=== PATIENT | male | born 1945 | race African-American/Black ===

== ENCOUNTER 2019-06-30 08:57 | Inpatient (IN) ==
[2019-06-30] MEDS ORDERED: SODIUM CHLORIDE 0.9% 2,000 ML IV STA (09:52)
[2019-06-30 10:06] LABS: Basophils % 0.2 % (0.0-0.8); Hematocrit 33.9 VOL% (42.0-52.0); Hemoglobin 11.2 GM/DL (14.0-18.0); Immature Granulocytes % 3.1 %; Immature Granulocytes Absolute 0.16 #; Lymphocytes # 0.2 10*3/uL (1.4-4.0); Lymphocytes % 4.1 % (21.2-54.2); Mean Corpuscular Volume 85.8 FL (87-102); Mean Platelet Volume 11.6 FL (9.6-12.0); Monocytes % 1.2 % (1.7-12.7); Neutrophils % 91.4 % (38.7-73.9); Red Blood Count 3.95 MC/CUMM (3.8-5.5); Red Cell Distribution Width 14.6 % (9.3-17.3); White Blood Count 5.1 T/CUMM (4-12)
[2019-06-30 10:12] LABS: Platelet Count 52 T/CUMM (130-400)
[2019-06-30 10:26] LABS: Band Neutrophils 1 % (0-10); Hypochromasia 1+; Lymphocytes 4 % (20-55); Microcytosis Slight; Segmented Neutrophils 94 % (50-85); Total Cells Counted 100
[2019-06-30 10:27] LABS: Platelet Estimate Decreased
[2019-06-30 10:28] LABS: Burr Cells Slight
[2019-06-30 10:31] LABS: Albumin 1.8 G/DL (3.4-5.0); Bilirubin,Total 1.4 MG/DL (0.2-1.0); Calcium 6.9 MG/DL (8.5-10.1); Osmolality,Calculated 281.5 MOS/KG (273-304); Thyroid Stimulating Hormone 0.328 uIU/ml (0.358-3.74); Total Protein 6.1 G/DL (6.4-8.3)
[2019-06-30 11:26] LABS: Free T4 (Free Thyroxine) 1.15 NG/DL (0.76-1.46)
[2019-06-30] MEDS ORDERED: ONDANSETRON 4 MG/2 ML VIAL IV PRN (11:47)
[2019-06-30] MEDS ORDERED: DEXTROSE 50% 25 GM/50 ML VIAL IV PRN ×2 (11:47)
[2019-06-30] MEDS ORDERED: GLUCAGON 1 MG VIAL IM PRN ×2 (11:47)
[2019-06-30] MEDS ORDERED: ACETAMINOPHEN 325 MG TABLET PO PRN (11:47)
[2019-06-30] MEDS: SODIUM CHLORIDE 0.9% 1,000 ML IV SCH ×2 (14:50→21:28)
[2019-06-30] MEDS: ENOXAPARIN 40 MG/0.4 ML SYRINGE SUBCUT SCH (14:50)
[2019-06-30] MEDS ORDERED: METOPROLOL TARTRATE 5 MG/5 ML VIAL IV ONE (15:23)
[2019-07-01] MEDS: MORPHINE 4 MG/1 ML VIAL IV PRN ×2 (00:16→10:15)
[2019-07-01 05:48] LABS: Hematocrit 32.1 VOL% (42.0-52.0); Hemoglobin 10.6 GM/DL (14.0-18.0); Immature Granulocytes % 6.7 %; Immature Granulocytes Absolute 0.07 #; Lymphocytes # 0.3 10*3/uL (1.4-4.0); Lymphocytes % 27.9 % (21.2-54.2); Mean Corpuscular Volume 85.8 FL (87-102); Monocytes % 6.7 % (1.7-12.7); Neutrophils % 58.7 % (38.7-73.9); Red Blood Count 3.74 MC/CUMM (3.8-5.5); Red Cell Distribution Width 14.7 % (9.3-17.3)
[2019-07-01 06:11] LABS: Platelet Count 26 T/CUMM (130-400)
[2019-07-01 06:12] LABS: Albumin 1.4 G/DL (3.4-5.0); Bilirubin,Total 1.6 MG/DL (0.2-1.0); Calcium 7.1 MG/DL (8.5-10.1); Osmolality,Calculated 295.5 MOS/KG (273-304)
[2019-07-01 06:17] LABS: Band Neutrophils 2 % (0-10); Hypochromasia 1+; Lymphocytes 25 % (20-55); Segmented Neutrophils 69 % (50-85); Total Cells Counted 100
[2019-07-01 06:18] LABS: Acanthocytes Few; Burr Cells Slight; Microcytosis Slight; Ovalocytes Slight; Target Cells Slight
[2019-07-01 06:19] LABS: Platelet Estimate Decreased
[2019-07-01 09:09] LABS: Hematocrit 32.7 VOL% (42.0-52.0); Hemoglobin 10.8 GM/DL (14.0-18.0); Immature Granulocytes % 1.7 %; Immature Granulocytes Absolute 0.02 #; Lymphocytes # 0.3 10*3/uL (1.4-4.0); Lymphocytes % 23.7 % (21.2-54.2); Mean Corpuscular Volume 85.4 FL (87-102); Monocytes % 8.5 % (1.7-12.7); Neutrophils % 66.1 % (38.7-73.9); Red Blood Count 3.83 MC/CUMM (3.8-5.5); Red Cell Distribution Width 14.6 % (9.3-17.3); White Blood Count 1.2 T/CUMM (4-12)
[2019-07-01 09:18] LABS: Platelet Count 26 T/CUMM (130-400)
[2019-07-01 09:41] LABS: Burr Cells Slight; Hypochromasia 1+; Lymphocytes 23 % (20-55); Microcytosis Slight; Ovalocytes Slight; Segmented Neutrophils 69 % (50-85); Total Cells Counted 100
[2019-07-01 09:42] LABS: Platelet Estimate Decreased; Target Cells Slight
[2019-07-01] MEDS: PANTOPRAZOLE 40 MG TABLET PO SCH (10:15)
[2019-07-01] MEDS: SODIUM CHLORIDE 0.9% 1,000 ML IV SCH ×2 (10:20→16:40)
[2019-07-01] MEDS ORDERED: POTASSIUM CHLORIDE 20 MEQ TABLET PO ONE (12:02)
[2019-07-01] MEDS: METOPROLOL TARTRATE 25 MG TABLET PO SCH ×2 (12:26→20:49)
[2019-07-01] MEDS: ENOXAPARIN 40 MG/0.4 ML SYRINGE SUBCUT SCH (12:33)
[2019-07-01] MEDS ORDERED: CEFEPIME 1,000 MG VIAL IM SCH (15:00)
[2019-07-01] MEDS ORDERED: CEFEPIME 1,000 MG VIAL IV SCH (15:30)
[2019-07-01] MEDS ORDERED: CEFEPIME 1,000 MG in SODIUM CHLORIDE 0.9% 100 ML IV SCH (16:00)
[2019-07-01] MEDS: FILGRASTIM-SNDZ 480 MCG/0.8 ML SYRINGE SUBCUT SCH (16:37)
[2019-07-01] MEDS: CEFEPIME 1,000 MG in SODIUM CHLORIDE 0.9% 100 ML IV SCH (16:40)
[2019-07-01] MEDS ORDERED: DIGOXIN 0.5 MG/2 ML AMP IV ONE (18:43)
[2019-07-01] MEDS ORDERED: DIGOXIN 0.5 MG/2 ML AMP ONE (18:44)
[2019-07-01] MEDS ORDERED: SODIUM CHLORIDE 0.9% 500 ML IV ONE (18:49)
[2019-07-01 19:29] LABS: Eosinophils # 0.1 10*3/uL (0.0-0.87); Hematocrit 29.2 VOL% (42.0-52.0); Hemoglobin 9.6 GM/DL (14.0-18.0); Immature Granulocytes % 2.5 %; Immature Granulocytes Absolute 0.01 #; Lymphocytes # 0.2 10*3/uL (1.4-4.0); Mean Corpuscular HGB Conc 32.9 GM/DL (32-36); Mean Corpuscular Volume 85.4 FL (87-102); Neutrophils % 17.5 % (38.7-73.9); Red Blood Count 3.42 MC/CUMM (3.8-5.5); Red Cell Distribution Width 14.6 % (9.3-17.3)
[2019-07-01 19:38] LABS: Platelet Count 18 T/CUMM (130-400); White Blood Count 0.4 T/CUMM (4-12)
[2019-07-01 20:00] LABS: Band Neutrophils 4 % (0-10); Burr Cells 3+; Lymphocytes 22 % (20-55); Metamyelocytes 4 %; Platelet Estimate Decreased; Segmented Neutrophils 59 % (50-85); Total Cells Counted 100
[2019-07-02] MEDS: CEFEPIME 1,000 MG in SODIUM CHLORIDE 0.9% 100 ML IV SCH ×4 (00:02→23:58)
[2019-07-02] MEDS ORDERED: SODIUM CHLORIDE 0.9% 500 ML IV ONE ×2 (00:15→06:25)
[2019-07-02] MEDS: SODIUM CHLORIDE 0.9% 1,000 ML IV SCH (01:03)
[2019-07-02] MEDS ORDERED: VANCOMYCIN INJ 1,000 MG in SODIUM CHLORIDE 0.9% 250 ML IV SCH (01:30)
[2019-07-02] MEDS: PHENYLEPHRINE DRIP 40 MG/250 ML PREMIX IV PRN ×8 (02:53→20:42)
[2019-07-02 04:03] LABS: Calcium 6.8 MG/DL (8.5-10.1)
[2019-07-02 04:13] LABS: Allen Test Positive
[2019-07-02 04:17] LABS: ABG Base Excess -14.4 MMOL/L (-2.5-2.5); ABG HCO3 12.7 MMOL/L (20-26); ABG PH 7.359 (7.35-7.45); ABG TCO2 9.4 MMOL/L (23-27)
[2019-07-02 04:20] LABS: ABG PCO2 17.6 MM HG (35-48)
[2019-07-02 05:17] LABS: ABG Base Excess -21.9 MMOL/L (-2.5-2.5); ABG HCO3 8.5 MMOL/L (20-26); ABG Oxygen Saturation 97.4 % (95-100); ABG TCO2 3.9 MMOL/L (23-27)
[2019-07-02 05:19] LABS: ABG PCO2 8.4 MM HG (35-48)
[2019-07-02] MEDS ORDERED: SODIUM BICARBONATE 50 MEQ/50 ML VIAL IV ONE (05:50)
[2019-07-02] MEDS: SODIUM BICARB INJ 150 MEQ in STERILE WATER INJ 850 ML IV SCH ×3 (06:13→23:53)
[2019-07-02] MEDS ORDERED: NOREPINEPHRINE 4 MG/4 ML VIAL IV ONE (06:21)
[2019-07-02] MEDS: NOREPINEPHRINE 8 MG in SODIUM CHLORIDE 0.9% 242 ML IV PRN ×5 (06:29→20:39)
[2019-07-02] MEDS: MORPHINE 4 MG/1 ML VIAL IV PRN ×2 (07:56→15:26)
[2019-07-02] MEDS: METOPROLOL TARTRATE 25 MG TABLET PO SCH (08:20)
[2019-07-02] MEDS: PANTOPRAZOLE 40 MG TABLET PO SCH (08:20)
[2019-07-02 08:41] LABS: Apearance,Urine Slightly Hazy (Clear); Bacteria,Urine Occasional /HPF (Few); Bilirubin,Urine Negative (Negative); Blood, Urine Large mg/dL (Negative); Glucose,Urine (UA) Negative (Negative); Ketones,Urine Negative (Negative); Mucus,Urine Occasional /LPF (Occasional); Nitrite,Urine Negative (Negative); Protein,Urine Negative; RBC,Urine 71 /HPF (0-4); Sperm,Urine Occasional /HPF (Negative); Squamous Epithelial Cell,Urine Occasional /HPF (0-10); Urine Color Yellow (Yellow); Urine Specific Gravity 1.006 (1.001-1.035); Urine Urobilinogen < 2.0 EU/DL (0.2-1.0); WBC,Urine 4 /HPF (0-6)
[2019-07-02 09:15] LABS: Hematocrit 27.2 VOL% (42.0-52.0); Hemoglobin 9.1 GM/DL (14.0-18.0); Immature Granulocytes % 2.3 %; Immature Granulocytes Absolute 0.01 #; Lymphocytes # 0.3 10*3/uL (1.4-4.0); Lymphocytes % 74.4 % (21.2-54.2); Mean Corpuscular HGB Conc 33.5 GM/DL (32-36); Monocytes % 9.3 % (1.7-12.7); Red Blood Count 3.24 MC/CUMM (3.8-5.5); Red Cell Distribution Width 14.6 % (9.3-17.3)
[2019-07-02 09:19] LABS: White Blood Count 0.4 T/CUMM (4-12)
[2019-07-02 09:20] LABS: Platelet Count 12 T/CUMM (130-400)
[2019-07-02 09:34] LABS: Acanthocytes Few; Hypochromasia 1+; Lymphocytes 100 % (20-55); Ovalocytes Slight; Platelet Estimate Decreased; Total Cells Counted 100
[2019-07-02] MEDS ORDERED: SODIUM CHLORIDE 0.9% 1,000 ML IV PRN (10:15)
[2019-07-02 10:25] LABS: ABG Base Excess -11.7 MMOL/L (-2.5-2.5); ABG HCO3 9.8 MMOL/L (20-26); ABG Oxygen Saturation 93.6 % (95-100); ABG PH 7.468 (7.35-7.45); ABG PO2 75.1 MM HG (80-95); ABG TCO2 10.2 MMOL/L (23-27)
[2019-07-02 10:27] LABS: ABG PCO2 13.8 MM HG (35-48)
[2019-07-02] MEDS: FILGRASTIM-SNDZ 480 MCG/0.8 ML SYRINGE SUBCUT SCH (11:07)
[2019-07-02] MEDS: HYDROCORTISONE 100 MG VIAL IV SCH ×2 (13:49→21:47)
[2019-07-02 15:21] LABS: Hematocrit 25.2 VOL% (42.0-52.0); Hemoglobin 8.4 GM/DL (14.0-18.0); Immature Granulocytes % 3.1 %; Immature Granulocytes Absolute 0.01 #; Lymphocytes # 0.3 10*3/uL (1.4-4.0); Lymphocytes % 84.4 % (21.2-54.2); Mean Corpuscular HGB Conc 33.3 GM/DL (32-36); Mean Platelet Volume 11.2 FL (9.6-12.0); Monocytes % 3.1 % (1.7-12.7); Neutrophils % 9.4 % (38.7-73.9); Platelet Count 59 T/CUMM (130-400); Red Cell Distribution Width 14.6 % (9.3-17.3)
[2019-07-02] MEDS ORDERED: LIDOCAINE 2% TOP JELLY 20 ML VIAL INTRAURETH ONE ×2 (15:21→15:33)
[2019-07-02 15:23] LABS: White Blood Count 0.3 T/CUMM (4-12)
[2019-07-02 16:14] LABS: Lymphocytes 90 % (20-55); Nucleated Red Blood Cells 2 (0-5); Segmented Neutrophils 3 % (50-85)
[2019-07-02 16:15] LABS: Hypochromasia 1+; Microcytosis 1+; Platelet Estimate Decreased; Total Cells Counted 100
[2019-07-02 16:16] LABS: Burr Cells Few; Target Cells Few
[2019-07-03] MEDS: NOREPINEPHRINE 8 MG in SODIUM CHLORIDE 0.9% 242 ML IV PRN ×3 (00:47→06:39)
[2019-07-03] MEDS: PHENYLEPHRINE DRIP 40 MG/250 ML PREMIX IV PRN ×9 (00:48→21:59)
[2019-07-03 02:00] LABS: Hematocrit 25.8 VOL% (42.0-52.0); Hemoglobin 8.7 GM/DL (14.0-18.0); Immature Granulocytes % 6.9 %; Immature Granulocytes Absolute 0.02 #; Lymphocytes # 0.2 10*3/uL (1.4-4.0); Lymphocytes % 58.6 % (21.2-54.2); Mean Corpuscular HGB Conc 33.7 GM/DL (32-36); Monocytes % 10.3 % (1.7-12.7); Neutrophils % 24.2 % (38.7-73.9); Red Blood Count 3.11 MC/CUMM (3.8-5.5); Red Cell Distribution Width 14.7 % (9.3-17.3)
[2019-07-03 02:06] LABS: Platelet Count 17 T/CUMM (130-400); White Blood Count 0.3 T/CUMM (4-12)
[2019-07-03 02:23] LABS: Allen Test Positive
[2019-07-03 02:25] LABS: ABG Base Excess -0.1 MMOL/L (-2.5-2.5); ABG HCO3 24.4 MMOL/L (20-26); ABG Oxygen Saturation 97.8 % (95-100); ABG PCO2 22.6 MM HG (35-48); ABG PH 7.576 (7.35-7.45); ABG PO2 93.9 MM HG (80-95); ABG TCO2 19.3 MMOL/L (23-27)
[2019-07-03 02:35] LABS: Calcium 6.6 MG/DL (8.5-10.1); Osmolality,Calculated 326.4 MOS/KG (273-304)
[2019-07-03 03:18] LABS: Lymphocytes 78 % (20-55); Total Cells Counted 100
[2019-07-03 03:21] LABS: Burr Cells 2+; Hypochromasia 1+; Microcytosis 1+; Platelet Estimate Decreased; Target Cells Few
[2019-07-03 03:22] LABS: Segmented Neutrophils 6 % (50-85)
[2019-07-03] MEDS: HYDROCORTISONE 100 MG VIAL IV SCH ×3 (05:13→20:40)
[2019-07-03] MEDS: SODIUM BICARB INJ 150 MEQ in STERILE WATER INJ 850 ML IV SCH (07:02)
[2019-07-03] MEDS ORDERED: ACETAMINOPHEN 650 MG SUPP RECTAL PRN (07:33)
[2019-07-03] MEDS: CEFEPIME 1,000 MG in SODIUM CHLORIDE 0.9% 100 ML IV SCH (07:58)
[2019-07-03] MEDS ORDERED: SODIUM CHLORIDE 0.45% 1,000 ML IV SCH (08:00)
[2019-07-03] MEDS ORDERED: VANCOMYCIN INJ 1,000 MG in SODIUM CHLORIDE 0.9% 250 ML IV ONE (08:00)
[2019-07-03] MEDS: FILGRASTIM-SNDZ 480 MCG/0.8 ML SYRINGE SUBCUT SCH (08:51)
[2019-07-03] MEDS: PANTOPRAZOLE 40 MG TABLET PO SCH (08:58)
[2019-07-03] MEDS ORDERED: SODIUM CHLORIDE 0.9% 1,000 ML IV PRN (09:40)
[2019-07-03] MEDS ORDERED: AMIODARONE INJ 450 MG in DEXTROSE 5% 241 ML IV SCH (10:30)
[2019-07-03] MEDS ORDERED: AMIODARONE INJ 150 MG in DEXTROSE 5% 100 ML IV ONE (10:30)
[2019-07-03] MEDS ORDERED: ETOMIDATE 20 MG/10 ML VIAL IV ONE ×2 (11:16→11:30)
[2019-07-03] MEDS ORDERED: SUCCINYLCHOLINE 200 MG/10 ML VIAL ONE (11:17)
[2019-07-03] MEDS: NOREPINEPHRINE 8 MG in DEXTROSE 5% 242 ML IV PRN ×2 (11:25→15:36)
[2019-07-03] MEDS ORDERED: SUCCINYLCHOLINE 200 MG/10 ML VIAL IV ONE (11:30)
[2019-07-03] MEDS ORDERED: DEXTROSE 10% 250 ML IV ONE (12:48)
[2019-07-03] MEDS: DEXTROSE 10% 250 ML BAG IV PRN ×3 (12:49→14:51)
[2019-07-03 12:59] LABS: ABG HCO3 12.8 MMOL/L (20-26); ABG Oxygen Saturation 98.9 % (95-100); ABG PCO2 35.8 MM HG (35-48); ABG TCO2 12.2 MMOL/L (23-27); Pt O2 Delivery Device Ventilator
[2019-07-03 13:05] LABS: ABG PH 7.161 (7.35-7.45)
[2019-07-03 13:13] LABS: Calcium 6.5 MG/DL (8.5-10.1)
[2019-07-03] MEDS: SODIUM BICARB INJ 100 MEQ in DEXTROSE 5% 1,000 ML IV SCH ×2 (13:22→20:34)
[2019-07-03] MEDS: POTASSIUM CHLORIDE RIDER 10 MEQ in PREMIX 1 EACH IV SCH ×3 (13:50→15:52)
[2019-07-03] MEDS ORDERED: DEXTROSE 10% 1,000 ML IV SCH (15:00)
[2019-07-03] MEDS ORDERED: SODIUM CHLORIDE 0.9% 1,000 ML IV ONE (17:23)
[2019-07-03] MEDS ORDERED: NOREPINEPHRINE 16 MG in DEXTROSE 5% 234 ML IV PRN (18:31)
[2019-07-03] MEDS ORDERED: CEFEPIME 1,000 MG in DEXTROSE 5% 100 ML IV SCH (20:00)
[2019-07-03 22:47] VITALS: BP 35/16
[2019-07-04] MEDS ORDERED: PANTOPRAZOLE 40 MG VIAL IV SCH (09:00)
== END 2019-07-03 23:02 | disposition expired | DRG 871 ==
LOC: N.ED 08:57 → N.EDINP 11:47 → SUATTDRO 11:47 → N.TELES 12:14 → N.ICU 07-02 01:25 → N.CLINP 07-02 09:49
PROVIDERS: ADMIT Internal Medicine; ATTEND Internal Medicine